=== PATIENT | female | born 1985 | race Two or more races ===

== ENCOUNTER 2017-07-29 16:51 | Emergency (ER) | payer OTHER ==
[~2017-07-29] VITALS: Ht 157.5 cm; Wt 72.6 kg
[2017-07-29 17:07] VITALS: BP 128/91
== END 2017-07-29 18:45 | disposition home or self-care (01) ==
LOC: ER 17:00
DX: S16.1XXA Strain of muscle, fascia and tendon at neck level, initial encounter (principal); V43.52XA Car driver injured in collision with other type car in traffic accident, initial encounter; Y93.89 Activity, other specified; Y92.410 Unspecified street and highway as the place of occurrence of the external cause; Y99.8 Other external cause status
CPT/HCPCS: 72040

== ENCOUNTER 2020-12-10 23:08 | Emergency (ER) | payer MEDICAID, OTHER ==
[~2020-12-10] VITALS: Ht 157.5 cm; Wt 77.1 kg
[2020-12-10] MEDS ORDERED: EPINEPHrine HCL 1 MG/1 ML AMP IM ONE (23:30)
[2020-12-10] MEDS ORDERED: methylPREDNISolone SOD SUCC 125 MG/2 ML VL IM ONE (23:30)
[2020-12-10] MEDS ORDERED: FAMOTIDINE (10MG/ML) 2ML VL IV ONE (23:30)
[2020-12-10] MEDS ORDERED: methylPREDNISolone SOD SUCC 40 MG/ML VL IV ONE (23:30)
[2020-12-10] MEDS ORDERED: SODIUM CHLORIDE 0.9% 1,000 ML IV ONE (23:30)
[2020-12-10] MEDS ORDERED: diphenhdrAMINE HCL 50 MG/1 ML VL IV ONE (23:30)
[2020-12-11 04:00] VITALS: BP 120/77
== END 2020-12-11 04:02 | disposition home or self-care (01) ==
LOC: ER 23:10
DX: T78.2XXA Anaphylactic shock, unspecified, initial encounter (principal); Z87.440 Personal history of urinary (tract) infections
CPT/HCPCS: 96361; 96372; 96374; 96375; 99284; J0171; J1200; J2920; J3490; J7030

== ENCOUNTER → 2021-03-07 | Outpatient (CLI) | payer MEDICAID | END | disposition home or self-care (01) | LOC: LAB 14:27 | PROVIDERS: ATTEND Specialist | DX: N72 Inflammatory disease of cervix uteri (principal); R87.618 Other abnormal cytological findings on specimens from cervix uteri ==